=== PATIENT | female | born 1955 | race Caucasian/White ===

== ENCOUNTER → 2023-09-11 16:22 | Outpatient (REF) | payer MEDICARE, OTHER, SELFPAY | LOC: HWRAD 16:22 | PROVIDERS: ATTENDING PHYSICIAN Family Medicine | DX: S50.02XD Contusion of left elbow, subsequent encounter (principal) | CPT/HCPCS: 73080 ==

== ENCOUNTER → 2023-12-12 14:46 | Outpatient (REF) | payer MEDICARE, SELFPAY | LOC: HWWDC 14:46 | PROVIDERS: ATTENDING PHYSICIAN Family Medicine; REFERRING PHYSICIAN Obstetrics & Gynecology Gynecology | DX: Z12.31 Encounter for screening mammogram for malignant neoplasm of breast (principal) | CPT/HCPCS: 77063; 77067 ==

== ENCOUNTER → 2025-02-16 11:13 | Outpatient (REF) | payer MEDICARE, OTHER, SELFPAY | LOC: HWWDC 11:13 | PROVIDERS: ATTENDING PHYSICIAN Obstetrics & Gynecology Gynecology; FAMILY PHYSICIAN Family Medicine | DX: Z12.31 Encounter for screening mammogram for malignant neoplasm of breast (principal) | CPT/HCPCS: 77063; 77067 ==

== ENCOUNTER 2025-05-13 09:02 | Emergency (ER) | payer MEDICARE, OTHER, SELFPAY ==
[2025-05-13 09:10] VITALS: BP 164/88
--- NOTE | 2025-05-13 10:28 | ED.GENMED ---
History of Present Illness
General
Chief Complaint: Musculo-Skeletal Complaint
Time Seen by Provider: 05/13/25 10:02
History of Present Illness
History of Present Illness:
69-year-old female presents to the emergency department for evaluation of nontraumatic right shoulder pain ongoing for the past 3 days. Seem to improve each morning when she wakes up but then worsens throughout the day. Denies any traumatic
injuries. Pain radiates from the right shoulder down to the fingertips. Takes Aleve routinely and has not changed her dosage of this. No chest pain or shortness of breath
Review of Systems
Review of Systems
Allergies reviewed?: Yes
All Other Systems: ROS reviewed and negative except as documented in HPI and ROS
Phy Exam
Physical Exam
Physical Exam:
GEN: Well appearing, NAD, WDWN
HEENT: Oral mucosa moist, no scleral icterus
Cardiac: Regular rate
Lung: No respiratory distress, no tachypnea
MSK: No gross deformity or injuries. No reproducible tenderness to the right shoulder. Range of motion is fully intact however abduction and forward flexion to increase discomfort, positive Neer impingement test
Skin: Good color, no pallor or jaundice, no rashes
Neuro: AO x3, moves all extremities freely
Psych: Calm, cooperative
Course
Orders/Labs/Results
Orders:
Orders
05/13/25 10:25
CR Shoulder - Right Min 2 View Urgent
Comment:
Reason For Exam: pain
05/13/25 12:29
Triamcinolone Injectable [[id number]] 10 mg INTRAARTIC NOW STA
Vital Signs
Initial and Last Documented VS:
Initial Vital Signs
Temp Pulse Resp BP Pulse Ox
97.5 F 71 20 164/88 98
05/13/25 09:10 05/13/25 09:10 05/13/25 09:10 05/13/25 09:10 05/13/25 09:10
Last Documented Vital Signs
Temp Pulse Resp BP Pulse Ox
97.5 F 71 20 164/88 98
05/13/25 09:10 05/13/25 09:10 05/13/25 09:10 05/13/25 09:10 05/13/25 10:29
MDM/Problems Addressed
MDM/Problems Addressed:
R shoulder injected w/ 10mg triamcinolone w/ 0.5% bupivacaine 2cc. Likely acute inflammatory arthropathy, no e/o bony pathology on XR. Bone lesion noted to pt, appears stable. She is already on daily NSAIDs. Recommend Ortho f/u
*Pulse Oximetry
SaO2: 98
Oxygen Mode of Delivery: Room air
Patient hypoxic: no
*Critical Care Note
Total Time (30-74mins, 75-104mins- exclusive of procedures): Not Applicable
ED Attending Note
-
Portions of this chart may have been created with voice recognition software.� Occasional wrong word or��sound alike� substitutions may have occurred due to the inherent limitations of voice recognition software.
Discharge Plan
Departure
Patient Disposition: Home (Routine Discharge)
Date of Disposition: 05/13/25
Time of Disposition: 12:41
Patient with high blood pressure during this ER visit?: No
Discharge Problem:
Acute pain of right shoulder
Instructions: Shoulder pain - ED (DC)
Referrals:
Hans Luna MD [Active, Orthopedics] - As needed
Juanita Ratliff DO [Family Provider, Family Practice]
Interventions
Interventions:
*Risk Screen - Suicide Last Done: 05/13/25 09:15
*General Assessment Last Done: 05/13/25 09:58
*Neglect/Abuse Screening Last Done: 05/13/25 09:15
*ED- Fall Risk Assessment Last Done: 05/13/25 09:58
*ED COVID-19 Vaccine History Last Done: 05/13/25 09:58
*ED Influenza Vaccine History Last Done: 05/13/25 09:58
*Nursing Disposition Last Done: 05/13/25 12:45
ED-Musculoskeletal Assessment Last Done: 05/13/25 09:58
Discharge Date and Time
Discharge Date/Time: 05/13/25 12:45
Print Language: SRI LANKAN
[2025-05-13] MEDS: KENALOG-40 10 MG INTRAARTIC (12:45)
== END 2025-05-13 12:45 | disposition home or self-care (01) ==
LOC: EMR 09:02
PROVIDERS: EMERGENCY PHYSICIAN Emergency Medicine; FAMILY PHYSICIAN Family Medicine
DX: M25.511 Pain in right shoulder (principal); M89.9 Disorder of bone, unspecified
CPT/HCPCS: 99283; 20610; 73030